=== PATIENT | female | born 1990 | race Caucasian/White ===

== ENCOUNTER 2018-12-13 20:15 | Inpatient (IN) | payer BC, SELFPAY ==
[2018-12-13 20:22] VITALS: BMI 49.3
[2018-12-13] MEDS: Lactated Ringers 1,000 ML 50 ML IV (21:10)
[2018-12-13 21:28] LABS: Absolute Lymphocyte Count 4.23 X10^3/ul (0.83-4.51); Absolute Neutrophil Count 11.1 X10^3/uL (2.0-7.7); Basophil# 0.08 X10^3/uL; Basophil% 0.5 % (0-1); Eosinophil# 0.28 X10^3/uL; Eosinophils% 1.6 % (0-5); Hematocrit 37.8 % (37-47); Hemoglobin 12.3 g/dl (12.0-15.0); Lymphocyte # 4.23 X10^3/ul (4.0); Lymphocyte % 24.8 % (19-41); Mean Corp Hgb Conc 32.5 g/gl (32-36); Mean Corpuscular Hgb 25.6 pg (27.0-32.0); Mean Corpuscular Volume 78.8 fL (81-99); Mean Platelet Vol. 10.1 fl (6.2-12.0); Monocyte# 1.27 X10^3/uL; Monocyte% 7.5 % (0-10); Neutrophil # 11.14 X10^3/uL (2.7-7.7); Neutrophil % 65.4 % (47-70); Platelet Count 406 K/mm3 (150-450); RBC Distribution Width CV 15.6 % (11.6-14.6); RBC Distribution Width SD 44.8 fl (35.1-43.9)
[2018-12-13 21:29] LABS: POSITIVE COUNT NO; POSITIVE DIFFERENTIAL NO; POSITIVE MORPHOLOGY NO
[2018-12-13] MEDS: miSOPROStol 25 MCG TABLET PO (21:49)
[2018-12-14] MEDS: 0.9% Normal Saline 100 ML IV.SOLN. INTRA-UTER (02:35)
[2018-12-14] MEDS: miSOPROStol 25 MCG TABLET PO (02:41)
--- NOTE | 2018-12-14 02:50 | PCM.HP.OB ---
- Problem List (1) Obesity affecting Status: Acute (2) History of shoulder dystocia in prior Status: Acute (3) History of gestational hypertension Status: Acute (4) History of anesthesia complications Status: Acute (5) HSV-2 seropositive Status: Acute (6) Positive GBS test Status: Acute (7) Tobacco use during Status: Acute (8) HCV (hepatitis C virus) Status: Acute (9) Anogenital HPV (human papilloma virus) infection Status: Acute History Date of Admission: 12/13/18 Final LATASHA: 12/20/18 Final LATASHA Source: US <20 weeks Gestational age: 39 Weeks and 1 Days History of this : This is a 28 year-old, G [5], P [2021], at 39 weeks gestational age by first trimester ultrasound. Presents to L&D for induction of labor due to history of shoulder dystocia. Patient declines section due to should dystocia history and consents to induction of labor. Allergies acetaminophen [From Vicodin] Allergy (Verified 12/13/18 22:41) Hives hydrocodone [From Vicodin] Allergy (Verified 12/13/18 22:41) Hives latex Allergy (Verified 12/13/18 22:41) Hives Home Medications: Home Medications Acyclovir 400 mg PO TID 12/13/18 Vit,Calc76/Iron/Folic [Pnv 29-1 Tablet] 1 tab PO DAILY 12/13/18 Smoking Status: Former smoker Alcohol: None Heart Tracin, moderate variability, accels, no decels. Category 1 FHT TOCO: Irregular, mild History Past Pregnancies: Past Pregnancies Delivery Date Name GA/Weeks Outcome Route Weight Infant Gender Labor Length Anesthesia Delivery Location Provider FOB Labs: GBS positive 1hr GCT 106 Urine tox screen negative RPR negative Rubella Immune HBsAG negative HIV negative O positive HCV not detected Expected Infant Delivery Method: Spontaneous Vaginal Review of Systems Constitutional: Denies: Chills, Fever, Weight Change HEENT: Denies: Head Aches, Sinus Congestion, Sinus Drainage Cardiovascular: Reports: Chest Pain Respiratory: Reports: Cough, Shortness of Breath Gastrointestinal: Reports: Abdominal Pain Genitourinary: Reports: Dysuria Neurological: Denies: Numbness, Tingling, Focal weakness Psychiatric: Denies: Anxiety, Depression, Homicidal Ideations, Suicidal Ideations Physical Exam General: Alert, Oriented x3, No apparent distress HEENT: Atraumatic, Normocephalic Cardiovascular: Regular rate, Regular Rhythm, No murmurs Lungs: Clear to auscultation, No rhonchi, No wheeze Abdomen: Bowel Sounds Present, Soft, Gravid Extremities:: No edema Neurological: Deep Tendon Reflexes 2+/4 and Symmetrical. Negative for: Clonus [employer]: Normal external genitalia Estimated gestational size: Appropriate for gestational size Presentation: Cephalic Cervix Dilation (cm): 1 Station: -3 Effacement (%): 60 Assessment/Plan All Active Problems Obesity affecting (Acute) History of shoulder dystocia in prior (Acute) History of gestational hypertension (Acute) History of anesthesia complications (Acute) HSV-2 seropositive (Acute) Positive GBS test (Acute) Tobacco use during (Acute) HCV (hepatitis C virus) (Acute) Anogenital HPV (human papilloma virus) infection (Acute) This is a 28 year-old, G [5], P [2001], at 39 weeks gestational age for induction of labor due to history of shoulder dystocia P: 1) Routine labs, saline lock. Admit to L&D 2) Cytotec given x 1 dose. Page catheter placed and second dose of cytotec to be given. 3) Continuous monitoring 4) GBS prophylaxis once pitocin started 5) Does not plan to get epidural during labor, would like nitrous during labor. 6) Declines LARC 7) notified of labor and collaborating physician.
[2018-12-14] MEDS: 0.9% Saline Lock 10 ML Syringe IV (07:05)
[2018-12-14] MEDS: Oxytocin 30 units/NS 500 ml 30 UNITS/500 ML IV.SOLN IV (07:05)
--- NOTE | 2018-12-14 09:08 | PCM.PN.BLA ---
Progress Note S: Patient comfortable O: cvx - 3/70/-3 AROM scant clear fluid fhts - 150s with mod variability, accles, occ variable, reassuring tocos - not tracing well A&P: Continue pitocin induction patient declines epidural
[2018-12-14] MEDS: Lactated Ringers 1,000 ML 50 ML IV (14:40)
[2018-12-14] MEDS: fentaNYL-bupivacaine (epidural) 100 ML BAG EPIDURAL (15:02)
[2018-12-14] MEDS: Oxytocin 30 units/NS 500 ml 30 UNITS/500 ML IV.SOLN 334 UNITS IV (16:43)
[2018-12-14] MEDS: Oxytocin 30 units/NS 500 ml 30 UNITS/500 ML IV.SOLN 167 UNITS IV (17:13)
--- NOTE | 2018-12-14 17:18 | PCM.OPRPT ---
Vaginal Delivery Maternal Presentation: Medically Indicated Induction Method of Induction: Pitocin, Page Bulb, Amniotomy Medical Reason for Induction: Maternal Medical Condition: list: - Chronic hypertension Amniotic Fluid Description: Clear Final LATASHA: 12/20/18 Gestational age: 39 Weeks and 1 Days Date of Procedure: 12/14/18 Pre-Operative Diagnosis: (1) H/o shoulder dystocia (2) Chronic hypertension Post-Operative Diagnosis: Same Surgery/ Procedure Performed: Spontaneous Vaginal Delivery Type of Anesthesia: Epidural Description of Procedure: Patient felt a lot of pressure and was anterior lip/C/0. She pushed past it & easily delivered the head. The head was gently guided to allow delivery of anterior and posterior shoulders. No excess traction placed on head. Body delivered and placed on maternal abdomen. 3VC clamped & cut in delayed fashion. Placenta delivered with gentle traction. Good uterine tone obtained. Presentation: GUSTAVO Placental Delivery Description: Expressed Placenta Disposition: [facility] Cord Vessel Description: 3 Vessels Cord Entanglement: None Estimated Blood Loss: 200ml A gender: Male (1 minute): 9 (5 minute): 9 Episiotomy Description: None Laceration: Vaginal Extension/lac - Repaired with 3-0 vicryl Medications given after delivery: IV Pitocin
[2018-12-14 20:45] VITALS: BP 132/62; PULSE 66; RESP 18; TEMP 36.3
[2018-12-15 01:30] VITALS: BP 127/85; PULSE 78; RESP 18; TEMP 37.1
[2018-12-15 05:15] VITALS: BP 137/60; PULSE 67; RESP 18; TEMP 36
[2018-12-15 08:00] VITALS: BP 135/71; PULSE 67; RESP 20; TEMP 36.3; O2SAT 98
--- NOTE | 2018-12-15 12:31 | PCM.PN.OB ---
Patient Problems: Active and Suspected Problems Obesity affecting (Acute) History of shoulder dystocia in prior (Acute) History of gestational hypertension (Acute) History of anesthesia complications (Acute) HSV-2 seropositive (Acute) Positive GBS test (Acute) Tobacco use during (Acute) HCV (hepatitis C virus) (Acute) Anogenital HPV (human papilloma virus) infection (Acute) Subjective: Doing well per patient and nursing staff. Ambulating and taking PO without difficulty. Voiding. Bottle feeding Planning D/C home today. Pain controlled. - Physical Exam General: Alert, Oriented x3, Cooperative HEENT: Atraumatic Neck: Trachea Midline Lungs: Clear to auscultation, Normal air movement, No rhonchi, No wheeze Cardiovascular: Regular rate, Regular Rhythm, No murmurs Abdomen: Bowel Sounds Present, Soft, Non Tender - Fundus firm 2 below U Extremities: No edema Psych/Mental Status: Normal Affect, Appropriate Vital Signs Temp Pulse Resp BP Pulse Ox 97.3 F L 67 20 H 135/71 H 98 12/15/18 08:00 12/15/18 08:00 12/15/18 08:00 12/15/18 08:00 12/15/18 08:00 Oxygen Delivery Method Room Air Weight: 315 lb Body Mass Index (BMI) 49.3 Intake and Output for Last 24 Hours 12/13/18 12/14/18 12/15/18 23:59 23:59 23:59 Intake Total 3363 / 3363 Output Total 1200 / 1200 Balance 2163 / 2163 Medical Necessity - Tobacco Use Smoking Status: Former smoker Assessment/Plan All Active Problems Obesity affecting (Acute) History of shoulder dystocia in prior (Acute) History of gestational hypertension (Acute) History of anesthesia complications (Acute) HSV-2 seropositive (Acute) Positive GBS test (Acute) Tobacco use during (Acute) HCV (hepatitis C virus) (Acute) Anogenital HPV (human papilloma virus) infection (Acute) A: PPD #2 P: 1) Routine orders 2) D/C home 3) Follow up in 2 weeks and 6 weeks.
[2018-12-15 12:45] VITALS: BP 131/69; PULSE 63; TEMP 36.4; O2SAT 96
--- NOTE | 2018-12-15 12:58 | DCINST_ITS ---
Discharge Diet: No Restrictions Discharge Activity: Return to Normal Activity, May Drive, May Shower, May Take a Tub Bath May resume sexual activity in: 4-6 weeks Additional Activity Instructions:: Nothing in the vagina for 4-6 weeks. You may return to work/school in 6 weeks. Call your doctor if your incision/area has: Continuous Slow Oozing, Sudden Increased Bleeding, Increased Pain/ Swelling, Increased Redness, Foul Smelling Discharge Call your doctor if you observe: Fever of 101 or Higher, Inability to urinate, Using more than one pad per hour, Shortness of breath, Chest pain, Increased palpitations (irregular heartbeat), Calf discomfort, Uncontrolled pain Additional Instructions: If you experience any of the following, contact your healthcare provider. * Bleeding that soaks a pad every hour for 2 hours * Fever 100.4 or higher * Unrelieved incision or abdominal pain * Swelling, redness, discharge or bleeding from your incision or episiotomy site * Your incision begins to separate * Problems urinating (including inability to urinate or burning while urinating). * Visual changes * Severe headache * Flu-like symptoms * Pain or redness in one of both of your breasts * Pain, warmth, tenderness or swelling in your legs, especially the calf area * Frequent nausea and vomiting * Symptoms of depression or anxiety If you experience any of the following, call 911 or go to the nearest Emergency Room. * Chest pain * Problems breathing * Seizure activity * Partial or complete paralysis of a body part, slurred speech, weakness or drooping of the face, or a sudden inability to walk or hold your balance Allergies/Adverse Reactions: Allergies acetaminophen [From Vicodin] Allergy (Verified 12/13/18 22:41) Hives hydrocodone [From Vicodin] Allergy (Verified 12/13/18 22:41) Hives latex Allergy (Verified 12/13/18 22:41) Hives Medications to take at Discharge Acyclovir 400 mg PO TID 12/13/18 Vit,Calc76/Iron/Folic [Pnv 29-1 Tablet] 1 tab PO DAILY 12/13/18 Ibuprofen [Motrin] 600 mg PO Q6H PRN PRN tablet 12/15/18 Please Follow Up With: Nicole Reynoso When: Call to make an appointment with your doctor in 2 weeks and 6 weeks. Primary Care Physician: Care Physician,No Primary [Primary Care Provider] - Test Results: Test results from this visit will be discussed in further detail at your follow- up appointment, if applicable.
[2018-12-15 17:59] VITALS: BP 134/72; PULSE 65; RESP 15; TEMP 36.3
--- NOTE | 2018-12-15 18:38 | NURSING ---
1835 infant to car seat by mother, patient to W/C, placed on patients lap. Both pt and infant To private car in stable condition.
== END 2018-12-15 18:35 | disposition home or self-care (01) | DRG 806 ==
PROVIDERS: Advanced Practice Midwife; Admitting Provider Obstetrics & Gynecology; Referring Provider Obstetrics & Gynecology; Visit Provider Obstetrics & Gynecology
DX: O13.3 Gestational [pregnancy-induced] hypertension without significant proteinuria, third trimester (principal); O98.513 Other viral diseases complicating pregnancy, third trimester; Z37.0 Single live birth; B17.10 Acute hepatitis C without hepatic coma; O98.313 Other infections with a predominantly sexual mode of transmission complicating pregnancy, third trimester; A63.0 Anogenital (venereal) warts; O70.0 First degree perineal laceration during delivery; A60.00 Herpesviral infection of urogenital system, unspecified; O99.820 Streptococcus B carrier state complicating pregnancy; O99.213 Obesity complicating pregnancy, third trimester; Z3A.39 39 weeks gestation of pregnancy; Z87.891 Personal history of nicotine dependence; Z87.59 Personal history of other complications of pregnancy, childbirth and the puerperium
CPT/HCPCS: 59025; 59050; 85025; 86850; 86900; 99218; J7120; A4216; G0378

== ENCOUNTER 2019-10-23 19:43 | Emergency (ER) | payer OTHER, SELFPAY ==
[2019-10-23 19:44] VITALS: BP 161/104; PULSE 114; RESP 19; TEMP 36.6; O2SAT 96; BMI 52.2
[2019-10-23] MEDS: 0.9% Normal Saline 1,000 ML 1000 ML IV (20:49)
[2019-10-23] MEDS: Ondansetron 4 MG/2 ML Vial IV (20:49)
[2019-10-23 21:04] LABS: Absolute Neutrophil Count 7.8 X10^3/uL (2.0-7.7); Basophil# 0.05 X10^3/uL; Basophil% 0.4 % (0-1); Eosinophil# 0.21 X10^3/uL; Eosinophils% 1.9 % (0-5); Hematocrit 40.3 % (37-47); Hemoglobin 12.6 g/dL (12.0-15.0); Lymphocyte % 20.5 % (19-41); Mean Corp Hgb Conc 31.3 g/dL (32-36); Mean Corpuscular Hgb 22.3 pg (27.0-32.0); Mean Corpuscular Volume 71.5 fL (81-99); Mean Platelet Vol. 10.7 fl (6.2-12.0); Monocyte# 0.77 X10^3/uL; Monocyte% 6.9 % (0-10); NRBC Flagged by Analyzer 0 % (0-5); Neutrophil # 7.82 X10^3/uL (2.7-7.7); Neutrophil % 69.9 % (47-70); Platelet Count 236 K/mm3 (150-450); Red Blood Count 5.64 M/mm3 (4.2-5.4); White Blood Count 11.2 K/mm3 (4.4-11.0)
[2019-10-23 21:30] LABS: Internal QC Validated? YES +Cl - CLEAR BKGD
[2019-10-23 21:36] LABS: Pregnancy, Serum, hCG Quali. NEGATIVE Negative
[2019-10-23 21:37] LABS: Anion Gap 4 (5-15); BUN 8 mg/dL (7-18); BUN/Creat Ratio 9.4 RATIO (10-20); Chloride 108 mmol/L (98-107); Creatinine, Serum 0.85 mg/dL (0.55-1.02); EST Glomerular Filtration Rate 83 mL/min (>60); Est Glom Filt Rate - Afr Amer 101 mL/min (>60); Estimated Creatinine Clearance 94.11 ml/min; Glucose 92 mg/dL (74-106); Sodium Level 140 mmol/L (136-145)
--- NOTE | 2019-10-23 22:28 | ED.DCSUM_ITS ---
History of Present Illness Chief Complaint: Vag Bleeding Informant: Patient Onset: Weeks Current Severity: Severe Maximum Severity: Severe Narrative: Patient presents with vaginal bleeding that is been ongoing for the past 17 days. She states her last regular period was in July. She states occasionally she will skip months like this. Her normal period consists of 4 to 7 days of bleeding with heavy cramping, leg pain, and migraines. She started bleeding 17 days ago. She states bleeding has been very unusual and that it initially was very light but then would only have heavy bleeding for about a half an hour or an hour each day. Today bleeding has been very heavy to the point where she has bled through tampons and pads in the matter of 15 minutes. She is passing some clots. She is still not complaining of significant pain. On arrival heart rate is 114. - Past Medical History (1) Anogenital HPV (human papilloma virus) infection Status: Chronic (2) HCV (hepatitis C virus) Status: Chronic Past Medical History - Allergies and Home Meds Allergies/Adverse Reactions: Allergies acetaminophen [From Vicodin] Allergy (Verified 10/23/19 19:44) Hives hydrocodone [From Vicodin] Allergy (Verified 10/23/19 19:44) Hives latex Allergy (Verified 10/23/19 19:44) Hives Primary Care Physician: Altagracia Brown DO [STAFF PHYSICIAN] - As soon as possible Prior records reviewed: Yes Surgical History: - - Cold knife cone secondary to abnormal Pap Lives: With Family Smoking Status: Current every day smoker Review of Systems General: Denies: Chills, Fever Eyes: Denies: Visual changes - bilaterally ENT: Denies: Bilateral ear pain Cardiovascular: Denies: Chest pain Respiratory: Denies: Dyspnea, Cough Gastrointestinal: Reports: Nausea. Denies: Abdominal pain, Vomiting, Diarrhea Genitourinary: Denies: Dysuria Musculoskeletal: Denies: Extremity Pain Skin: Denies: Rash Neurological: Denies: Headache Allergy: Denies: Uticaria Physical Exam Vital Signs/Narrative: Vital Signs Temp Pulse Resp BP Pulse Ox 10/23/19 19:44 97.9 F 114 H 19 H 161/104 H 96 Inital Vital Signs reviewed: Yes General: Well nourished, Well developed Head: Normocephalic ENT: Moist mucous membranes Neck: Supple Cardiovascular: Tachycardia Respiratory: No distress, CTA bilaterally Abdomen: Soft, Nontender Back: Nontender Extremities: Nontender Skin: Normal color, No rash Neurological: Alert, Oriented x3 Psychological: Normal affect Diagnostic/Tx/Re-eval Laboratory Results 10/23/19 10/23/19 10/23/19 20:53 20:53 20:53 WBC 11.2 H RBC 5.64 H Hgb 12.6 Hct 40.3 MCV 71.5 L MCH 22.3 L MCHC 31.3 L RDW Std Deviation 42.0 RDW Coeff of Shonda 17.0 H Plt Count 236 MPV 10.7 Immature Gran % (Auto) 0.400 Neut % (Auto) 69.9 Lymph % (Auto) 20.5 [place] % (Auto) 6.9 Eos % (Auto) 1.9 Baso % (Auto) 0.4 Absolute Neuts (auto) 7.8 H Absolute Lymphs (auto) 2.30 Nucleated RBC % 0 Sodium 140 Potassium 4.0 Chloride 108 H Carbon Dioxide 28.0 Anion Gap 4 L BUN 8 Creatinine 0.85 Estim Creat Clear Calc 94.11 Est GFR (MDRD) Af Amer 101 Est GFR (MDRD) Non-Af 83 BUN/Creatinine Ratio 9.4 L Glucose 92 Calcium 9.0 Serum , Qual NEGATIVE - Medical Decision Making Patient was given IV fluids and Zofran. She still complaining of nausea and given a dose of Phenergan. On repeat evaluation heart rate has gone from 114 down to 90. She states bleeding is not quite as heavy as it was when she came in, but she is still passing some clots. I offered to call her [employer] to see if there were any other medication changes I would recommend, but she would prefer just to call them tomorrow. Hemoglobin is stable when compared to a year ago. She is given return instructions. ED Disposition - Plan for ED Patient: Disposition: Home or Assisted Living Diagnosis: Menorrhagia Instructions: Menorrhagia Prescriptions: proMETHazine tablet [Phenergan] 25 mg PO Q6H PRN PRN #10 tab PRN Reason: Nausea Prescription Printed Referrals: Altagracia Brown DO [STAFF PHYSICIAN] - As soon as possible
[2019-10-23] MEDS: proMETHazine 25 MG/ML Syringe 12.5 MG IV (22:39)
[2019-10-23 22:46] VITALS: BP 144/76; PULSE 81; RESP 18; O2SAT 97
== END 2019-10-23 22:51 | disposition home or self-care (01) ==
PROVIDERS: Emergency Provider Emergency Medicine
DX: N92.0 Excessive and frequent menstruation with regular cycle (principal); Z72.0 Tobacco use
CPT/HCPCS: 80048; 84703; 85025; 96361; 96374; 96375; 99283; J7030; A4216; J2405

== ENCOUNTER 2021-02-16 18:07 | Emergency (ER) | payer OTHER, SELFPAY ==
[2021-02-16 18:08] VITALS: PULSE 103; RESP 16; TEMP 36.8; O2SAT 98; BMI 53.5
[2021-02-16 18:10] VITALS: BP 187/108
--- NOTE | 2021-02-16 18:27 | EDS_ITS ---
HPI History of Present Illness Chief Complaint: Cellulitis Informant: patient Onset/Context/Timing Onset: Today Context: Gradual Onset Timing: Continuous Current Severity: Mild Maximum Severity: Mild Narrative Narrative: 30-year-old female prior history of hep C which has been treated now is no longer detectable. States from time to time she gets blistering on her right index finger. That occurred several days ago. But today she developed mild discomfort in the finger redness on the dorsum of the finger and streaking into her upper hand and forearm. No fever. No chills no pain no trauma to the hand. No lacerations or injuries. She is not diabetic. Prior similar symptoms: No Recent Illness/Hospitalization: No PFSH PFSH Home Medications promethazine 25 mg PO Q6H PRN PRN #10 tab 10/23/19 [Rx Last Taken Unknown] sertraline 100 mg PO DAILY 10/23/19 [History Last Taken Unknown] cephalexin 500 mg PO Q6H 7 Days #28 cap 02/16/21 [Rx Last Taken Unknown] Allergy/AdvReac Type Severity Reaction Status Date / Time acetaminophen [From Vicodin] Allergy Hives Verified 02/16/21 18:10 hydrocodone [From Vicodin] Allergy Hives Verified 02/16/21 18:10 latex Allergy Hives Verified 02/16/21 18:10 Social History Smoking Status: Current every day smoker ROS ROS ED ROS Narrative Denies recent illness Review of Systems ROS Unobtainable: Denies due to encephalopathy Constitutional Constitutional ED: Denies chills or fever(s) Eyes Eyes: Denies change in vision ENT ENT ED: Denies ear pain or sore throat Cardiovascular Cardiovascular: Denies chest pain Respiratory/Chest Respiratory/Chest: Denies cough or dyspnea Gastrointestinal Gastrointestinal: Denies abdominal pain, constipation, diarrhea, nausea or vomiting Genitourinary Genitourinary ED: Denies dysuria or hematuria Musculoskeletal Musculoskeletal: Denies myalgias Integumentary Reports rash Neurologic Neurologic: Denies headache(s) Psychiatric Psychiatric: Denies depression Endocrine Endocrinology: Denies polyuria Allergic/Immunologic Allergic/Immunologic ED: Denies urticaria EXAM Physical Exam Narrative Exam Narrative: Young female no acute distress. Vital signs are stable afebrile. She does not look septic or toxic. She is in no distress. The right index finger on the palm side there is blistering appears to be viral. There is minimal swelling of the finger and on the dorsum there is mild redness and tenderness also on the dorsum of the hand and proximal forearm. There is no axillary lymphadenopathy. The right wrist elbow and shoulder are nontender nonswollen. Respiratory exam otherwise is unremarkable. She has full flexion- extension all digits of the hand. Const Vital Signs: 02/16/21 18:08 02/16/21 18:10 Temperature 98.2 F Temperature Source Temporal Pulse Rate 103 H Respiratory Rate 16 Blood Pressure 187/108 H Blood Pressure Mean 134 Pulse Ox 98 Oxygen Delivery Method Room Air Positive well nourished and well developed General Appearance ED: well developed HEENT Reports moist mucous membranes Negative for trauma or tenderness Eyes PERRL and EOMs intact bilaterally Neck no lymphadenopathy, supple and no JVD General: Negative for tenderness Chest Wall inspection of chest normal and palpation of chest normal Resp normal respiratory effort and clear to auscultation bilaterally Cardio regular rate, regular rhythm, S1 normal heart sound, S2 normal heart sound and no murmurs GI normal to inspection, nondistended, normoactive bowel sounds, non-tender and non-distended Auscultation: normoactive bowel sounds Palpation: soft Extremity normal to inspection Extremity Narrative: Except minor blistering right index finger in the palm consistent with a viral etiology. On the dorsum there is mild redness. She however has full flexion-extension all digits of the right hand, right wrist and elbow. There is no axillary lymphadenopathy. This could be consistent with an early cellulitis. Neuro oriented x3 and CN's II-XII intact bilaterally Sensorium / Orientation: alert Motor Exam: strength 5/5 throughout Psych mental status grossly normal Skin Skin Narrative: Redness right finger. MDM MDM MDM Narrative Medical decision making narrative: Patient has mild redness of the right finger. No tenosynovitis. No sausage digit. This will be treated as an early potential cellulitis. Started on Keflex. 4 times a day for a week. First dose given in ER. Tylenol Motrin for pain. Return if worse. Discharge Plan Triage Chief Complaint: Cellulitis ED Provider: Earl Dumont Dx/Rx/DC Orders Clinical Impression: Cellulitis Instructions: Cellulitis Prescriptions: New cephalexin 500 mg capsule 500 mg PO Q6H 7 Days Qty: 28 RF: 0 No Action sertraline 100 MG tablet 100 mg PO DAILY RF: 0 promethazine 25 MG tablet 25 mg PO Q6H PRN PRN (Reason: Nausea) Qty: 10 RF: 0 Primary Care Provider: Care Physician,No Primary Referrals: Care Physician,No Primary [Primary Care Provider] - Activity Restrictions/Additional Instructions: If progressively getting worse or you develop a fever or severe swelling to the hand or finger return to reevaluate. I do not think that will happen. Tylenol and Motrin for pain. Elevate to decrease swelling. Keflex 1 pill 4 times a day for 7 days. If this completely resolves the next several days you can stop the antibiotic. Disposition Disposition: Home, self care
[2021-02-16] MEDS: Cephalexin 250 MG Capsule 500 MG PO (18:32)
[2021-02-16 18:33] VITALS: PULSE 106; RESP 16; O2SAT 99
== END 2021-02-16 18:42 | disposition home or self-care (01) ==
LOC: ED 18:36
PROVIDERS: Emergency Provider Emergency Medicine
DX: L03.011 Cellulitis of right finger (principal); F17.200 Nicotine dependence, unspecified, uncomplicated
CPT/HCPCS: 99282